=== PATIENT | female | born 1950 | race Caucasian/White ===

== ENCOUNTER 2020-06-27 09:20 | Inpatient (IN) ==
[2020-06-27 09:53] LABS: Basophils # 0.1 K/mcL (0.0-0.2); Basophils % 0.6 %; Eosinophils # 0.3 K/mcL (0.0-0.6); Eosinophils % 2.7 %; Hemoglobin 14.4 g/dL (11.5-15.4); Immature Granulocytes % 0.4 % (0-4); Lymphocytes # 2.4 K/mcL (0.6-4.6); Lymphocytes % 23.2 %; Mean Corpuscular Hemoglobin 29.9 pg (28.0-33.3); Mean Corpuscular Volume 93.6 fL (83.0-100.0); Mean Platelet Volume 9.9 fL (9.4-12.4); Monocytes # 0.6 K/mcL (0.0-1.3); Monocytes % 5.9 %; Neutrophils # 6.8 K/mcL (1.6-8.9); Platelet Count 307 K/mcL (140-400); Red Blood Count 4.81 M/mcL (3.82-4.97); Red Cell Distribution Width 15.3 % (11.5-14.5); Segmented Neutrophils % 67.2 %; White Blood Count 10.2 K/mcL (4.3-11.1)
[2020-06-27 09:55] LABS: INR 1.8; Prothrombin Time 20.6 Seconds (9.4-12.1)
[2020-06-27 09:58] LABS: Activated Partial Thrombo Time 36.4 Seconds (26.0-36.0)
[2020-06-27 10:08] LABS: BUN/Creatinine Ratio 21 (6-26); Blood Urea Nitrogen 15 mg/dL (8-23); Calcium 9.7 mg/dL (8.6-10.3); Carbon Dioxide 25 mEq/L (23-29); Chloride 109 mEq/L (98-107); Glucose 151 mg/dL (70-105); Osmolality,Calculated 298 (280-300); Sodium 142 mEq/L (136-145); eGFR For African Americans > 60 (> 60); eGFR For Non-African Americans > 60 (> 60)
[2020-06-27 10:24] LABS: Thyroid Stimulating Hormone 1.484 mcIU/mL (0.340-5.600); Troponin I 0.04 ng/mL (< 0.04)
[2020-06-27] MEDS ORDERED: Aspirin 81 MG TAB.CHEW PO ONE (10:28)
[2020-06-27] MEDS: DilTIAZem 50 MG/50 ML IV.SOLN IVC SCH ×4 (10:40→23:47)
[2020-06-27] MEDS ORDERED: Acetaminophen 325 MG TABLET PO PRN (11:25)
[2020-06-27] MEDS ORDERED: Ondansetron 4 MG/2 ML VIAL IVP PRN (11:25)
[2020-06-27] MEDS ORDERED: Perflutren Lipid Microsphere 1.3 ML in 0.9 % Sodium Chloride 8.7 ML IVP PRN (11:28)
[2020-06-27] MEDS ORDERED: Furosemide 20 MG/2 ML VIAL IVP ONE (11:30)
[2020-06-28] MEDS ORDERED: Furosemide 20 MG/2 ML VIAL IVP ONE (00:02)
[2020-06-28] MEDS: Levalbuterol 1 PUFF INHALER IH SCH ×3 (00:34→20:18)
[2020-06-28] MEDS: DilTIAZem 50 MG/50 ML IV.SOLN IVC SCH ×2 (03:56→08:40)
[2020-06-28 05:46] LABS: Hematocrit 40.4 % (35.3-44.9); Hemoglobin 12.9 g/dL (11.5-15.4); Mean Corpuscular HGB Conc 31.9 g/dL (31.6-35.5); Mean Corpuscular Hemoglobin 29.3 pg (28.0-33.3); Mean Corpuscular Volume 91.8 fL (83.0-100.0); Mean Platelet Volume 9.9 fL (9.4-12.4); Platelet Count 239 K/mcL (140-400); Red Cell Distribution Width 15.2 % (11.5-14.5); White Blood Count 7.6 K/mcL (4.3-11.1)
[2020-06-28 05:55] LABS: INR 1.4; Prothrombin Time 16.2 Seconds (9.4-12.1)
[2020-06-28 06:11] LABS: BUN/Creatinine Ratio 21 (6-26); Blood Urea Nitrogen 11 mg/dL (8-23); Carbon Dioxide 26 mEq/L (23-29); Chloride 107 mEq/L (98-107); Chol/HDL Ratio 2.6 (0-4.9); Cholesterol 137 mg/dL (< 200); Glucose 127 mg/dL (70-105); HDL Cholesterol 52 mg/dL (40-59); LDL Cholesterol,Calculated 67 mg/dL (< 100); Magnesium 1.6 mg/dL (1.6-2.6); Osmolality,Calculated 291 (280-300); Potassium 3.5 mEq/L (3.5-5.1); Sodium 140 mEq/L (136-145); Triglycerides 90 mg/dL (< 150); Troponin I 0.04 ng/mL (< 0.04); eGFR For African Americans > 60 (> 60); eGFR For Non-African Americans > 60 (> 60)
[2020-06-28 08:31] LABS: Estimated Average Glucose 131 mg/dl
[2020-06-28] MEDS: Metoprolol XL (24 HR) Succ 50 MG TAB.ER.24H PO SCH ×3 (08:40→19:20)
[2020-06-28] MEDS: lisinopriL 20 MG TABLET PO SCH (08:40)
[2020-06-28] MEDS: *HR* Digoxin 0.25 MG TABLET PO SCH ×2 (11:55→17:17)
[2020-06-28] MEDS: *HR* Rivaroxaban 10 MG TABLET PO SCH (17:17)
[2020-06-28] MEDS: Magnesium Oxide 400 MG TABLET PO SCH (17:17)
[2020-06-28] MEDS ORDERED: *HR* Metoprolol 5 MG/5 ML VIAL IVP ONE (23:43)
[2020-06-29 03:53] LABS: BUN/Creatinine Ratio 17 (6-26); Blood Urea Nitrogen 11 mg/dL (8-23); Calcium 9.3 mg/dL (8.6-10.3); Carbon Dioxide 28 mEq/L (23-29); Chloride 107 mEq/L (98-107); Glucose 106 mg/dL (70-105); Magnesium 1.8 mg/dL (1.6-2.6); Osmolality,Calculated 294 (280-300); Potassium 3.7 mEq/L (3.5-5.1); Sodium 142 mEq/L (136-145); eGFR For African Americans > 60 (> 60); eGFR For Non-African Americans > 60 (> 60)
[2020-06-29] MEDS: Magnesium Oxide 400 MG TABLET PO SCH (07:53)
[2020-06-29] MEDS: lisinopriL 20 MG TABLET PO SCH (07:53)
[2020-06-29] MEDS: Metoprolol XL (24 HR) Succ 50 MG TAB.ER.24H PO SCH ×3 (07:53→20:02)
[2020-06-29] MEDS: *HR* Digoxin 0.125 MG TABLET PO SCH (07:53)
[2020-06-29] MEDS: Levalbuterol 1 PUFF INHALER IH SCH ×2 (09:10→21:47)
[2020-06-29] MEDS: *HR* Rivaroxaban 10 MG TABLET PO SCH (16:58)
[2020-06-30] MEDS ORDERED: *HR* Metoprolol 5 MG/5 ML VIAL IVP ONE ×2 (02:24→13:01)
[2020-06-30] MEDS ORDERED: Simethicone 80 MG TAB.CHEW PO PRN (02:32)
[2020-06-30 04:22] LABS: BUN/Creatinine Ratio 16 (6-26); Blood Urea Nitrogen 10 mg/dL (8-23); Carbon Dioxide 29 mEq/L (23-29); Chloride 106 mEq/L (98-107); Glucose 124 mg/dL (70-105); Potassium 3.7 mEq/L (3.5-5.1); Sodium 142 mEq/L (136-145); eGFR For African Americans > 60 (> 60); eGFR For Non-African Americans > 60 (> 60)
[2020-06-30 04:23] LABS: Calcium 9.2 mg/dL (8.6-10.3); Magnesium 1.8 mg/dL (1.6-2.6); Osmolality,Calculated 294 (280-300)
[2020-06-30] MEDS: lisinopriL 20 MG TABLET PO SCH (08:11)
[2020-06-30] MEDS: *HR* Digoxin 0.125 MG TABLET PO SCH (08:11)
[2020-06-30] MEDS: Metoprolol XL (24 HR) Succ 50 MG TAB.ER.24H PO SCH ×2 (08:11→20:28)
[2020-06-30] MEDS: Magnesium Oxide 400 MG TABLET PO SCH (08:11)
[2020-06-30] MEDS: Levalbuterol 1 PUFF INHALER IH SCH ×2 (10:05→21:44)
[2020-06-30] MEDS ORDERED: Amiodarone Premix 150 MG/100 ML BAG IVPB ONE (10:10)
[2020-06-30] MEDS ORDERED: Amiodarone Premix 360 MG/200 ML BAG IVC ONE (10:30)
[2020-06-30] MEDS: *HR* Rivaroxaban 10 MG TABLET PO SCH (17:35)
[2020-06-30] MEDS: Amiodarone Premix 360 MG/200 ML BAG IVC SCH (18:10)
[2020-07-01] MEDS: Amiodarone Premix 360 MG/200 ML BAG IVC SCH (06:35)
[2020-07-01] MEDS: Levalbuterol 1 PUFF INHALER IH SCH ×2 (07:36→20:40)
[2020-07-01] MEDS: Metoprolol XL (24 HR) Succ 50 MG TAB.ER.24H PO SCH ×2 (07:51→21:18)
[2020-07-01] MEDS: lisinopriL 20 MG TABLET PO SCH (07:51)
[2020-07-01] MEDS: Magnesium Oxide 400 MG TABLET PO SCH (07:52)
[2020-07-01] MEDS: Spironolactone 25 MG TABLET PO SCH (07:52)
[2020-07-01 08:43] LABS: Basophils # 0.1 K/mcL (0.0-0.2); Eosinophils # 0.4 K/mcL (0.0-0.6); Eosinophils % 5.3 %; Immature Granulocytes % 0.4 % (0-4); Lymphocytes # 2.2 K/mcL (0.6-4.6); Lymphocytes % 27.3 %; Mean Corpuscular HGB Conc 30.9 g/dL (31.6-35.5); Mean Corpuscular Hemoglobin 28.9 pg (28.0-33.3); Mean Corpuscular Volume 93.8 fL (83.0-100.0); Monocytes # 0.6 K/mcL (0.0-1.3); Neutrophils # 4.8 K/mcL (1.6-8.9); Platelet Count 262 K/mcL (140-400); Red Blood Count 5.01 M/mcL (3.82-4.97); Red Cell Distribution Width 15.3 % (11.5-14.5); White Blood Count 8.1 K/mcL (4.3-11.1)
[2020-07-01 08:44] LABS: Hemoglobin 14.5 g/dL (11.5-15.4)
[2020-07-01 08:51] LABS: INR 1.9; Prothrombin Time 21.4 Seconds (9.4-12.1)
[2020-07-01] MEDS ORDERED: Furosemide 20 MG TABLET PO SCH (09:00)
[2020-07-01 09:03] LABS: BUN/Creatinine Ratio 21 (6-26); Blood Urea Nitrogen 15 mg/dL (8-23); Calcium 9.5 mg/dL (8.6-10.3); Carbon Dioxide 29 mEq/L (23-29); Chloride 104 mEq/L (98-107); Glucose 109 mg/dL (70-105); Osmolality,Calculated 291 (280-300); Potassium 4.2 mEq/L (3.5-5.1); Sodium 140 mEq/L (136-145); eGFR For African Americans > 60 (> 60); eGFR For Non-African Americans > 60 (> 60)
[2020-07-01] MEDS: *HR* Amiodarone 200 MG TABLET PO SCH ×2 (11:00→21:18)
[2020-07-01] MEDS: *HR* Rivaroxaban 10 MG TABLET PO SCH (17:36)
[2020-07-02 01:33] LABS: Basophils # 0.1 K/mcL (0.0-0.2); Eosinophils # 0.4 K/mcL (0.0-0.6); Eosinophils % 5.6 %; Hematocrit 43.6 % (35.3-44.9); Hemoglobin 13.7 g/dL (11.5-15.4); Immature Granulocytes % 0.3 % (0-4); Lymphocytes # 2.1 K/mcL (0.6-4.6); Lymphocytes % 27.6 %; Mean Corpuscular HGB Conc 31.4 g/dL (31.6-35.5); Mean Corpuscular Hemoglobin 29.6 pg (28.0-33.3); Mean Corpuscular Volume 94.2 fL (83.0-100.0); Mean Platelet Volume 9.8 fL (9.4-12.4); Monocytes # 0.8 K/mcL (0.0-1.3); Monocytes % 9.9 %; Neutrophils # 4.3 K/mcL (1.6-8.9); Platelet Count 225 K/mcL (140-400); Red Blood Count 4.63 M/mcL (3.82-4.97); Red Cell Distribution Width 15.1 % (11.5-14.5); Segmented Neutrophils % 55.6 %; White Blood Count 7.7 K/mcL (4.3-11.1)
[2020-07-02 02:05] LABS: BUN/Creatinine Ratio 18 (6-26); Blood Urea Nitrogen 13 mg/dL (8-23); Calcium 9.2 mg/dL (8.6-10.3); Carbon Dioxide 22 mEq/L (23-29); Chloride 107 mEq/L (98-107); Glucose 94 mg/dL (70-105); Osmolality,Calculated 288 (280-300); Sodium 139 mEq/L (136-145); eGFR For African Americans > 60 (> 60); eGFR For Non-African Americans > 60 (> 60)
[2020-07-02] MEDS: Levalbuterol 1 PUFF INHALER IH SCH (07:39)
[2020-07-02] MEDS: Magnesium Oxide 400 MG TABLET PO SCH (08:24)
[2020-07-02] MEDS: Spironolactone 25 MG TABLET PO SCH (08:24)
[2020-07-02] MEDS: Metoprolol XL (24 HR) Succ 50 MG TAB.ER.24H PO SCH (08:24)
[2020-07-02] MEDS: *HR* Amiodarone 200 MG TABLET PO SCH (08:25)
[2020-07-02] MEDS ORDERED: lisinopriL 20 MG TABLET PO SCH (09:00)
[2020-07-02] MEDS ORDERED: Furosemide 40 MG TABLET PO SCH (10:15)
[2020-07-02 12:52] VITALS: BP 160/84
== END 2020-07-02 14:51 | disposition home or self-care (01) | DRG 280 ==
LOC: EMEROOARM 09:20 → 2ANU 09:20 → SUATTDRO 14:13 → 2ANU 14:34 → 2NNU 06-30 10:57 → 2ANU 07-01 17:19
PROVIDERS: ADMIT Internal Medicine; ATTEND Internal Medicine